=== PATIENT | male | born 1950 | race Caucasian/White ===

== ENCOUNTER 2024-07-08 06:28 | Day surgery (SDC) | payer MEDICARE, OTHER, SELFPAY ==
[2024-07-08 12:16] LABS: Glucose - Point of Care 115 mg/dl (70-99)
== END 2024-07-08 13:35 | disposition home or self-care (01) ==
LOC: GI 06:28
PROVIDERS: ATTENDING PHYSICIAN Internal Medicine Gastroenterology
DX: Z12.11 Encounter for screening for malignant neoplasm of colon (principal); R19.5 Other fecal abnormalities; K57.30 Diverticulosis of large intestine without perforation or abscess without bleeding; K64.8 Other hemorrhoids; D12.3 Benign neoplasm of transverse colon
CPT/HCPCS: 45380; 88305; 82962

== ENCOUNTER 2025-07-12 18:40 | Emergency (ER) | payer MEDICARE, OTHER, SELFPAY ==
[2025-07-12 18:56] VITALS: BP 180/87
[2025-07-12 20:35] VITALS: BMI 34.3
--- NOTE | 2025-07-12 21:01 | ED.GENMED ---
History of Present Illness
General
Chief Complaint: DVT/Possible Blood Clot
Source: patient
Exam Limitations: none
Time Seen by Provider: 07/12/25 20:22
Nursing documentation reviewed up to this point in time: agreed with
History of Present Illness
History of Present Illness:
Patient is a 74-year-old male who presents to the emergency department with left calf pain. He states symptoms began this afternoon and describes noticing both swelling and pain in his left calf. Pain is worse with weightbearing. Fever or chills.
No obvious redness or warmth of left calf. No chest pain or shortness of breath.
Patient denies any known inciting injury or trauma however does report that he was ' down in the crawlspace' of his house earlier today fixing a pipe and is wondering if he may have 'twisted something'.
Patient has followed with an orthopedic over the past year given bilateral knee pain. This was treated with steroid injection at the time however he feels that he will likely require knee replacements.
He is not on any oral anticoagulation. No recent travel or recent surgeries. No personal or family history of blood clots/clotting disorders
Review of Systems
Review of Systems
Allergies reviewed?: Yes
All Other Systems: ROS reviewed and negative except as documented in HPI and ROS
Phy Exam
Physical Exam
Physical Exam:
Vitals: Patient's vital signs are stable. Afebrile
General: Patient is well appearing, no acute distress
Skin: Warm and dry, no rashes or lesions
Head: Normocephalic, atraumatic
Throat: Protecting airway
Neck: Normal ROM, no cervical spine tenderness
Cardiac: Regular rate
Pulm: No apparent respiratory distress. Lungs clear
Abdomen: Nondistended
Extremities: Nonpitting edema of left lower extremity extending from knee to ankle with reproducible tenderness in posterior aspect of left calf. No palpable subcutaneous abnormalities. No areas of fluctuance or induration. No obvious ecchymoses
or skin erythema/warmth.
Neuro: Grossly intact
Psychiatric: Normal affect.
Course
Orders/Labs/Results
Orders:
Orders
07/12/25 18:58
Venous Doppler Lwr Ext Left [US Periph Venous LOWER Ext LT] Urgent
Comment:
Reason For Exam: pain and swelling
Vital Signs
Initial and Last Documented VS:
Initial Vital Signs
Temp Pulse Resp BP Pulse Ox
98.2 F 96 18 180/87 95
07/12/25 18:56 07/12/25 18:56 07/12/25 18:56 07/12/25 18:56 07/12/25 18:56
Last Documented Vital Signs
Temp Pulse Resp BP Pulse Ox
98.2 F 80 18 161/89 96
07/12/25 18:56 07/12/25 22:35 07/12/25 18:56 07/12/25 22:35 07/12/25 22:35
MDM/Problems Addressed
Differential Diagnosis Includes:
Not limited to: Muscle strain, An's cyst, DVT, hematoma, etc.
MDM/Problems Addressed:
74-year-old male with left lower extremity swelling which he noticed today. No known injury or trauma. No fevers or other infectious symptoms. No recent travel or other risk factors for DVT. Vitals are stable. Physical exam as above. There is
nonpitting edema noted to his left lower extremity with area of focal tenderness in proximal calf. No overlying skin changes including erythema, warmth, or ecchymoses. No palpable cord. No areas of fluctuance. There are palpable distal pulses
and normal sensation.
An ultrasound was performed in triage which shows no evidence of DVT in left lower extremity. However, does note a small An's cyst in popliteal space with collection of left calf suspicious for hematoma.
Impression is left lower extremity swelling/pain likely secondary to An's cyst or hematoma. No evidence of superimposed infection. Patient is not on any oral anticoagulation. He has been able to ambulate. No evidence of vascular compromise.
Ultimately�feel stable for discharge home with supportive care and orthopedic follow-up. Strict return precautions discussed.
Chronic conditions affecting care:
N/A
Acute Exacerbation and/or Progression of Chronic Illness:
N/A
*Radiology
Radiology exam reviewed: radiology read reviewed
*Pulse Oximetry
SaO2: 95
Oxygen Mode of Delivery: Room air
Patient hypoxic: no
*EKG
Interpreted by ED Provider?: NA
*Senior Manager Quality Assurance Interpretation
Rate: Senior Manager Quality Assurance- N/A
*Critical Care Note
Total Time (30-74mins, 75-104mins- exclusive of procedures): Not Applicable
ED Attending Note
-
Portions of this chart may have been created with voice recognition software.� Occasional wrong word or��sound alike� substitutions may have occurred due to the inherent limitations of voice recognition software.
Discharge Plan
Departure
Patient Disposition: Home (Routine Discharge)
Date of Disposition: 07/12/25
Time of Disposition: 22:26
Patient with high blood pressure during this ER visit?: Yes
Condition: Good
Discharge Problem:
Swelling of left lower extremity
Instructions: An's Cyst (DC), BLOOD PRESSURE
Referrals:
Arsalan Wayne MD [Active, Orthopedics]
UNKNOWN - PT DOES,NOT KNOW [Family Provider]
Activity Restrictions/Additional Instructions:
RETURN TO THE EMERGENCY DEPARTMENT WITH ANY FEVERS, WORSENING SWELLING/PAIN IN LEFT LOWER EXTREMITY, REDNESS, WARMTH OF LEFT LOWER EXTREMITY, NUMBNESS/TINGLING, INABILITY TO AMBULATE, WORSENING IN CURRENT SYMPTOMS, OR ANY OTHER CONCERNS
- As discussed your ultrasound showed no evidence of blood clot of your left lower extremity. You were found to have a small An's cyst and a fluid collection in your left calf. This may be a hematoma from a ruptured An's cyst. Continue to
treat symptoms supportively at home. I recommend elevation, ice, Tylenol and/or Motrin as needed for pain. You can use crutches or cane to assist with ambulation as needed.
- Please follow-up with orthopedics for further evaluation and/management. You may require further imaging.
Monitor your symptoms closely and return to the emergency department with any acute worsening/new symptoms or any other concern
Interventions
Interventions:
*Risk Screen - Suicide Last Done: 07/12/25 18:56
*General Assessment Last Done: 07/12/25 18:56
*Neglect/Abuse Screening Last Done: 07/12/25 18:56
*ED- Fall Risk Assessment Last Done: 07/12/25 22:32
*ED COVID-19 Vaccine History Last Done: 07/12/25 22:32
*ED Influenza Vaccine History Last Done: 07/12/25 22:32
*Nursing Disposition Last Done: 07/12/25 22:39
ED- Cardiac Assessment Last Done: 07/12/25 22:32
ED- Pulmonary Assessment Last Done: 07/12/25 22:32
ED-Peripheral Vascular Assessment Last Done: 07/12/25 22:32
ED-Skin Assessment Last Done: 07/12/25 22:32
Discharge Date and Time
Discharge Date/Time: 07/12/25 22:46
Print Language: BHUTANESE
[2025-07-12 22:35] VITALS: BP 161/89
== END 2025-07-12 22:46 | disposition home or self-care (01) ==
LOC: EMR 18:40
PROVIDERS: EMERGENCY PHYSICIAN Emergency Medicine
DX: R22.42 Localized swelling, mass and lump, left lower limb (principal); R03.0 Elevated blood-pressure reading, without diagnosis of hypertension
CPT/HCPCS: 99284; 93971